=== PATIENT | female | born 1975 | race Caucasian/White ===

== ENCOUNTER 2019-09-27 09:57 | Outpatient (CLI) | payer BC ==
--- NOTE | 2019-09-27 11:55 | MRI ---
MRI Lumbar Spine WO Con History: [age] lumbar [age] pain with radiculopathy Comparison: None. Findings: The aortic contour is nonaneurysmal. No retroperitoneal periaortic adenopathy. Paraspinal musculature is symmetric. No hydronephrosis. No marrow infiltrative process. No acute fracture. Levels are as follows: L1/L2: Normal disc. No neural foraminal or spinal canal narrowing. L2/L3: Normal disc. Moderate facet arthropathy. No neural foraminal or spinal canal narrowing. L3/L4: Normal disc. Moderate facet arthropathy. Very small bilateral subforaminal disc osteophyte com plexes. No significant neural foraminal or spinal canal narrowing. L4/L5: There is inferior endplate Schmorl's node at L4 and superior endplate Schmorl's node at L5. Ty pe II Modic endplate changes. Moderate degenerative disc space height loss is circumferential disc osteophyte complex. There is a superimposed central and bilateral paracentral disc extrusion. This na rrows the spinal canal to approximately 5 mm. There is abutment of both L5 and S1 nerve roots. Moderate left and mild right neural foraminal narrowing with abutment of the left L4 nerve root. L5/S1: Broad-based posterior disc osteophyte complex with moderate bilateral neural foraminal narrowi ng. Abutment of the left exiting and traversing nerve root. Impression: Mild-moderate spondylosis lower lumbar spine with superimposed disc extrusion at L4/L5 causing nerve root abutment.
== END 2019-09-27 09:58 | disposition home or self-care (01) ==
LOC: SCSMRI 09:57
PROVIDERS: ATTEND Physician Assistant Medical
DX: M47.26 Other spondylosis with radiculopathy, lumbar region (principal); M51.16 Intervertebral disc disorders with radiculopathy, lumbar region
CPT/HCPCS: 72148

== ENCOUNTER 2023-01-19 15:42 | Outpatient (CLI) | payer BC ==
[2023-01-19 16:57] LABS: #Eosinphils 0.1 10x3/uL (0.0-0.5); #Monocytes 0.5 10x3/uL (0.0-1.1); #Neutrophils 3.7 10x3/uL (1.5-8.4); %Basophils 0.6 % (0.0-2.0); %Eosinophils 1.3 % (0.0-6.0); %Lymphocytes 35.6 % (18.0-47.0); %Neutrophils 55.4 % (40.0-75.0); Hemoglobin 12.9 g/dL (12.0-15.5); Mean Corpuscular HGB CONC 34.4 g/dL (32.0-36.0); Mean Corpuscular Hemoglobin 32.2 pg (27.0-33.0); Mean Corpuscular Volume 93.5 fl (81.6-98.3); Mean Platelet Volume 10.4 fl (7.4-10.4); Platelet Count 364 10x3/uL (150-450); RBC Distribution Width 11.5 % (11.5-14.5); Red Blood Cell (RBC) Count 4.01 10x6/uL (3.90-5.03); White Blood Cell (WBC) Count 6.7 10x3/uL (3.5-10.5)
[2023-01-19 17:08] LABS: ALT (SGPT) 10 U/L (8-55); AST (SGOT) 17 U/L (5-34); Albumin 4.7 g/dL (3.5-5.0); Alkaline Phosphatase 46 U/L (40-110); Anion Gap 14 mmol/L (10-20); BUN (Urea Nitrogen) 6 mg/dL (7.0-18.7); Bilirubin, Direct 0.2 mg/dL (0.1-0.3); Bilirubin, Total 0.4 mg/dL (0.2-1.2); Calc. Creatinine Clearance 0 mL/min (70-130); Calcium 9.9 mg/dL (7.8-10.44); Carbon Dioxide 26 mmol/L (22-29); Chloride 104 mmol/L (98-107); Estimated GFR 102; Glucose 85 mg/dL (70-105); Potassium 3.9 mmol/L (3.5-5.1); Sodium 140 mmol/L (136-145)
== END 2023-01-19 15:43 | disposition home or self-care (01) ==
LOC: LABBT 15:42
PROVIDERS: ATTEND Surgery
DX: Z01.812 Encounter for preprocedural laboratory examination (principal); N21.0 Calculus in bladder
CPT/HCPCS: 80048; 80076; 85025

== ENCOUNTER 2023-01-23 11:13 | Day surgery (SDC) | payer BC ==
[2023-01-18 10:44] VITALS: BMI 27.3
[2023-01-23] MEDS ORDERED: Fentanyl 250 MCG/5 ML VIAL ONE (13:08)
[2023-01-23] MEDS ORDERED: SUGAMMADEX SODIUM 200 MG/2 ML VIAL ONE (13:09)
[2023-01-23] MEDS ORDERED: Bupivacaine/Epinephrine 0.25% 30 ML VIAL ONE (13:14)
[2023-01-23] MEDS ORDERED: CEFAZOLIN 2 GM VIAL ONE (13:24)
[2023-01-23] MEDS ORDERED: Sodium Chloride 0.9% 100 ML ONE (13:24)
[2023-01-23] MEDS ORDERED: Lidocaine 1% PF 5 ML VIAL ONE (13:30)
[2023-01-23] MEDS ORDERED: Ketorolac Tromethamine 30 MG/ML VIAL ONE (13:30)
[2023-01-23] MEDS ORDERED: Dexamethasone 20 MG/5 ML VIAL ONE (13:30)
[2023-01-23] MEDS ORDERED: Ondansetron PF 4 MG/2 ML Vial ONE (13:30)
[2023-01-23] MEDS ORDERED: GLYCOPYRROLATE/PF 0.2 MG/ML VIAL ONE (13:30)
[2023-01-23] MEDS ORDERED: PROPOFOL 200 MG/20 ML VIAL ONE (13:30)
[2023-01-23] MEDS ORDERED: Rocuronium Bromide 10 MG/ML (10ML VIAL) ONE (13:30)
[2023-01-23] MEDS ORDERED: NEOSTIGMINE 3 MG/3 ML SYR 3 MG/3 ML SYRINGE ONE (13:30)
[2023-01-23] MEDS ORDERED: fentaNYL PF 100 MCG/2 ML SYRINGE ONE (14:38)
[2023-01-23] MEDS ORDERED: HYDROcodone/Acetaminophen 5/325 mg Tablet ONE (15:15)
== END 2023-01-23 16:20 | disposition home or self-care (01) ==
LOC: SDC 11:13
PROVIDERS: ATTEND Surgery
PROC: 0FT44ZZ Resection of Gallbladder, Percutaneous Endoscopic Approach (ICD-10-PCS; principal; 2023-01-23)
DX: K80.10 Calculus of gallbladder with chronic cholecystitis without obstruction (principal)
CPT/HCPCS: 88304; C1889; J1100; J1885; J2405; J2704; J3010; J3490